=== PATIENT | female | born 1980 | race Caucasian/White ===

== ENCOUNTER 2018-07-17 06:10 | Observation (INO) | payer BC ==
[2018-07-17 06:55] LABS: #Basophils 0.1 thou/uL (0.0-0.2); #Eosinphils 0.3 thou/uL (0.0-0.7); #Lymphocytes 1.9 thou/uL (1.20-3.40); #Monocytes 1.1 thou/uL (0.11-0.59); #Neutrophils 9.7 thou/uL (1.40-6.50); %Basophils 0.5 % (0.0-1.0); %Eosinophils 2.6 % (0.0-10.0); %Lymphocytes 14.5 % (21.0-51.0); %Monocytes 8.3 % (0.0-10.0); %Neutrophils 74.1 % (42.0-75.0); Hemoglobin 15.8 g/dL (12.0-16.0); Mean Corpuscular HGB CONC 33.2 g/dL (32.0-36.0); Mean Corpuscular Hemoglobin 28.7 pg (27.0-31.0); Mean Corpuscular Volume 86.4 fL (78.0-98.0); Mean Platelet Volume 8.4 fL (7.4-10.4); Platelet Count 339 thou/uL (130-400); RBC Distribution Width 12.3 % (11.5-14.5); Red Blood Cell (RBC) Count 5.51 mill/uL (4.20-5.40); White Blood Cell (WBC) Count 13.1 thou/uL (4.8-10.8)
[2018-07-17 07:19] LABS: ALT (SGPT) 198 U/L (8-55); AST (SGOT) 126 U/L (5-34); Albumin 4.4 g/dL (3.5-5.0); Alkaline Phosphatase 111 U/L (40-150); Anion Gap 14 mmol/L (10-20); BUN (Urea Nitrogen) 12 mg/dL (7.0-18.7); Bilirubin, Total 1.2 mg/dL (0.2-1.2); Calc. Creatinine Clearance 0 mL/min (70-130); Calcium 9.8 mg/dL (7.8-10.44); Carbon Dioxide 22 mmol/L (22-29); Chloride 102 mmol/L (98-107); Estimated GFR-MDRD Greater than 90; Globulin 3.4 g/dL (2.4-3.5); Glucose 96 mg/dL (70-105); Lipase 12 U/L (8-78); Potassium 3.5 mmol/L (3.5-5.1); Protein, Total 7.8 g/dL (6.0-8.3); Sodium 134 mmol/L (136-145)
[2018-07-17] MEDS ORDERED: Promethazine HCl 25 MG/ML VIAL ONE (07:44)
[2018-07-17 08:16] LABS: Bilirubin Moderate (Negative); Blood, Urine Large (Negative); Clarity CLOUDY (Clear); Glucose, Urine (Dipstick) Negative (Negative); Leukocyte Trace (Negative); Nitrite Negative (Negative); Protein, Urine (Dipstick) 30 mg/dL (Neg-Trace); Specific Gravity, Urine 1.022 (1.002-1.036); pH, Urine 5.5 (5.0-9.0)
[2018-07-17 08:18] LABS: Bacteria/HPF 1+ HPF (None Seen); Pregnancy Test - Urine (BHCG) Negative (Negative); Pregu Control Background? CLEAR/WHITE (CLR/WHITE); Pregu Control Bar Appear? YES (CONTROL BAR); Squamous Epithelial 21-50 HPF (0-3)
[2018-07-17 08:21] LABS: Specific Gravity 1.022 (1.002-1.036)
[2018-07-17 08:22] LABS: Pathc Cast-AUWi Flag 6.68 (0-2.49)
[2018-07-17 08:42] LABS: Yeast-All Forms None Seen HPF (None Seen)
[2018-07-17 08:43] LABS: Hyaline Casts/LPF 0-3 HYALINE CAST LPF (0-3 Hyaline); Manual Microscopic Reviewed? No Path Casts Seen
[2018-07-17] MEDS ORDERED: Piperacillin/Tazobactam 3.375 GM VIAL ONE (10:16)
--- NOTE | 2018-07-17 11:00 | PDOC.FPRHP ---
- History of Present Illness Chief Complaint: Epigastric pain History of Present Illness: 38 year old female with PMH neurofibromatosis that presents with a 2 day history of significant epigastric pain and intractable N/V. Patient states that she was hospitalized at [place] [facility] on 07/11 - 07/14. She presented initially for diarrhea and BRBPR. She had imaging done which suggested enterocolitis. She was treated for presumptive infectious enterocolitis at that time and was started on antibiotics. She reportedly improved during the course of her stay. CT imaging suggested that distal thickening of colon may be related to IBD. GI was consulted and recommended further workup outpatient. Patient was discharged on Sunday to complete course of Ciprofloxacin. Patient states that since discharge she has not been able to tolerate PO. She cannot even tolerate liquids. She immediately vomits after eating, even when just attempting bland foods or water. Patient states that she is also having episodes of emesis despite not eating. It is nonbloody, but green in appearance. She has had no further episodes of rectal bleeding. However, patient continues to have diarrhea 5-6 times per day. She has yet to have a formed stool and is not passing much gas. Her epigastric pain is persistent and severe, rated 9/10. Sitting up and leaning forward helps minimally. Patient has no history of gastrointestinal related problems. She has been otherwise healthy. She denies any sick contacts or inciting events. ED Course: Patient was given phenergan and IV zosyn in ED. GI was consulted from ED. They recommend stool studies and hydration. - Allergies/Adverse Reactions Allergies Allergy/AdvReac Type Severity Reaction Status Date / Time metronidazole [From Flagyl] Allergy Verified 07/17/18 11:00 - History PMHx: Neurofibromatosis PSHx: C/S x1, Appendectomy, Cholecystectomy FHx: Father with DM and HTN Social: Denies alcohol, tobacco, or drug use. - Review of Systems General: reports: weight/appetite/sleep changes. denies: fever/chills, night sweats Eyes: denies: vision changes ENT: denies: nasal congestion, rhinorrhea Respiratory: denies: cough, congestion, shortness of breath Cardiovascular: denies: chest pain, palpitation, edema Gastrointestinal: reports: nausea, vomiting, diarrhea, abdominal pain, GI bleeding. denies: constipation Genitourinary: denies: dysuria Skin: denies: rashes Musculoskeletal: denies: pain, tenderness Neurological: denies: syncope, seizure Psychological: denies: anxiety, depression - Vital signs BP: [120/79] HR: [79] RR: [18] Tmax: [98.1 F] Pox: [99]% on [RA] Wt: [69 kg] - Physical Exam Constitutional: awake, alert and oriented, well developed -Constitutional: Moderate amount of distress 2/2 abdominal pain HEENT: normocephalic and atraumatic, EOMI, grossly normal vision, grossly normal hearing, MMM Neck: supple Heart: RRR, no murmurs/rubs/gallops Lungs: CTAB Abdomen: soft -Abdomen: Decreased bowel sounds. Exquisitely tender to palpation in RUQ and epigastric region. Rebound tenderness in epigastric region. Negative Givens's sign. Musculoskeletal: ROM grossly normal Neurological: no focal deficit Skin: capillary refill <2 seconds Heme/Lymphatic: no unusual bruising or bleeding Psychiatric: good judgment and insight FMR H&P: Results - Labs Result Diagrams: 07/17/18 06:44 07/17/18 06:44 Lab results: WBC 13.1 thou/uL (4.8-10.8) H 07/17/18 06:44 Hgb 15.8 g/dL (12.0-16.0) 07/17/18 06:44 Hct 47.6 % (36.0-47.0) H 07/17/18 06:44 MCV 86.4 fL (78.0-98.0) 07/17/18 06:44 Plt Count 339 thou/uL (130-400) 07/17/18 06:44 Neutrophils % 74.1 % (42.0-75.0) 07/17/18 06:44 Sodium 134 mmol/L (136-145) L 07/17/18 06:44 Potassium 3.5 mmol/L (3.5-5.1) 07/17/18 06:44 Chloride 102 mmol/L (98-107) 07/17/18 06:44 Carbon Dioxide 22 mmol/L (22-29) 07/17/18 06:44 BUN 12 mg/dL (7.0-18.7) 07/17/18 06:44 Creatinine 0.68 mg/dL (0.6-1.1) 07/17/18 06:44 Glucose 96 mg/dL (70-105) 07/17/18 06:44 Calcium 9.8 mg/dL (7.8-10.44) 07/17/18 06:44 Total Bilirubin 1.2 mg/dL (0.2-1.2) 07/17/18 06:44 AST 126 U/L (5-34) H 07/17/18 06:44 ALT 198 U/L (8-55) H 07/17/18 06:44 Alkaline Phosphatase 111 U/L (40-150) 07/17/18 06:44 Serum Total Protein 7.8 g/dL (6.0-8.3) 07/17/18 06:44 Albumin 4.4 g/dL (3.5-5.0) 07/17/18 06:44 Lipase 12 U/L (8-78) 07/17/18 06:44 Urine Ketones 80 mg/dL (Negative) H 07/17/18 07:50 Urine Blood Large (Negative) H 07/17/18 07:50 Urine Nitrite Negative (Negative) 07/17/18 07:50 Ur Leukocyte Esterase Trace (Negative) H 07/17/18 07:50 Urine RBC 4-6 HPF (0-3) 07/17/18 07:50 Urine WBC 4-6 HPF (0-3) H 07/17/18 07:50 Ur Squamous Epith Cells 21-50 HPF (0-3) H 07/17/18 07:50 Urine Bacteria 1+ HPF (None Seen) H 07/17/18 07:50 FMR H&P: A/P - Problem List (1) Intractable nausea and vomiting Current Visit: Yes Status: Acute Code(s): R11.2 - NAUSEA WITH VOMITING, UNSPECIFIED (2) Enterocolitis Current Visit: Yes Status: Suspected Code(s): K52.9 - NONINFECTIVE GASTROENTERITIS AND COLITIS, UNSPECIFIED (3) Mild dehydration Current Visit: Yes Status: Acute Code(s): E86.0 - DEHYDRATION (4) Neurofibromatosis Current Visit: Yes Status: Chronic - Plan 38 year old female presents with 3 day history of severe epigastric pain and intractable N/V 1. Intractable N/V - Unable to tolerate PO since Sunday (including liquids) - Emesis nonbloody, but bilious (noted in ED) - IVF at 125 mL/hr - Zofran IV PRN - NPO until N/V better controlled - Will order urine drug screen and serum drug screen to rule out other causes of N/V, abdominal pain 2. Suspected infectious enterocolitis - Based on recent hospitalization in [place] (d/c'd sunday) - d/c'd home with Cipro; has been unable to take d/t N/V - Stool studies not performed at outside facility; will order stool cultures and fecal lactoferrin - GI consulted from ED; appreciate recs - Will hold off on antibiotics until receive further recommendations from GI 3. Transaminitis, source unknown - Rule out hepatitis - May be 2/2 enterocolitis - Continue to trend - Consider RUQ ultrasound to evaluate liver 4. Mild dehydration - IVF - Strict I&O's 5. Neurofibromatosis - Patient not on any medications or requiring any treatment for this diagnosis GI PPX: Protonix DVT PPX: SCD's Code status: Full Dispo: Obs, Medical. Stable. Obtain stool studies as above. Await GI recommendations. Bonnie Philippe, PGY-2 Attending Addendum - Attending Addendum Date/Time: 07/17/18 6699 I personally evaluated the patient and discussed the management with Dr. Philippe. I agree with the History, Examination, Assessment and Plan documented above with any addition or exceptions noted below. Patient here with continued abdominal pain and inability to tolerate PO after recent discharge from [facility] with diagnosis of "enterocolitis". She reports abdominal pain, epigastric, pressure and crampy in nature that is worse with food. Also has continued diarrhea that is nonbloody. Emesis is also nonbloody. She is admitted here to obs status for mild hypovolemia and abdominal pain, r/o PUD, gastritis, gastroenteritis. Stool studies will be obtained. PCT pending. Holding antibiotics until GI evaluates as they were consulted by the ER. GI cocktail x1 to see if it will alleviate her pain somewhat. Nausea control as needed.
[2018-07-17] MEDS ORDERED: Pantoprazole 40 MG VIAL IVP SCH (11:45)
[2018-07-17] MEDS ORDERED: Lidocaine 2% Viscous Solution 10 ML, Aluminum & Magnesium Hydroxide 30 ML SSW SCH (12:15)
[2018-07-17] MEDS: Lactated Ringer's 1,000 ML IV SCH ×2 (12:29→20:44)
[2018-07-17 12:37] LABS: Amphetamine Not Detected (NotDetected); Barbiturates Screen Not Detected (NotDetected); Benzodiazepine Screen Not Detected (NotDetected); Cocaine Metabolite Screen Not Detected (NotDetected); Medtox Control Line Valid? VALID (VALID); Medtox Reader # READER 1; Methadone Not Detected (NotDetected); Methamphetamine Not Detected (NotDetected); Opiate Screen Not Detected (NotDetected); Oxycodone Screen Not Detected (NotDetected); Phencyclidine (PCP) Not Detected (NotDetected); THC/Cannabinoid Screen Detected (NotDetected); Tricyclic Screen Not Detected (NotDetected)
[2018-07-17 13:57] LABS: Acetaminophen Less than 6.0 mcg/mL (10.0-30.0); Alcohol Less than 10 mg/dL (Less than 10); Salicylate Less than 8.0 mg/dL (15.0-30.0)
[2018-07-17 14:28] LABS: Hep B Core Total Ab Non-Reactive (NonReactive); Hep B Core Total Index 0.05 S/CO (0-0.79); Hep B Surf AB Non-Reactive (NonReactive); Hep B Surf Ag Non-Reactive S/CO (NonReactive); Hep C IgG Ab Non-Reactive (NonReactive); Hep C Index 0.21 S/CO (0-0.79)
[2018-07-17] MEDS: Acetaminophen 325 MG TAB PO PRN (15:27)
[2018-07-17] MEDS: Ondansetron PF 4 MG/2 ML Vial IVP PRN ×2 (15:27→22:46)
[2018-07-17] MEDS ORDERED: Ondansetron ODT 4 MG TAB PO PRN (20:30)
[2018-07-17] MEDS ORDERED: traMADol HCl 50 MG TAB PO SCH (20:30)
[2018-07-17] MEDS: Promethazine 25 MG TAB PO PRN (20:45)
--- NOTE | 2018-07-17 21:40 | CON ---
DATE OF CONSULTATION: 07/17/2018 REASON FOR CONSULTATION: Diarrhea, abnormal GI imaging, abdominal pain. CONSULTING PHYSICIAN: Dr. Raf Garibay. HISTORY OF PRESENT ILLNESS: The patient is a 38-year-old female with past medical history of neurofi bromatosis, presenting with complaints of midepigastric abdominal pain, nausea, and vomiting. She st ates that she was in her usual state of health until approximately 1-1/2 weeks ago when she experienc ed acute onset of midepigastric abdominal pain characterized as a sharp/stabbing/cramping-type sensat ion, that was constant, nonradiating, and reaches severity of 10/10. The pain was worse with eating, bending over, and twisting movements, better with drinking milk, fasting, and taking hot showers or baths. With increase in this abdominal pain and subsequently prompted her to seek healthcare assista nce at the [facility] on where imaging performed at that time, suggested a p ossible infectious enterocolitis. She was subsequently started on antibiotic therapy including cipro floxacin only (she is allergic to METRONIDAZOLE) with improvement of her symptoms during the course o f her stay; however, within 24-48 hours after discharge, she experienced relapse in her abdominal erasmo n, which then prompted her to come back for further evaluation. She was subsequently transferred to [facility] for such evaluation, associated with the increase in her abdominal pain, was incr eased nausea and vomiting, intolerance to p.o. that she experiences even to now and has been unable t o tolerate either solid or liquid foods over the last 3-4 days. She also describes frequent diarrhea , having approximately 5-6 soeqerdhk-fl-guzxwn bowel movements per day with no difficulty with defeca tion, associated with the onset of this diarrhea, was also one episode of hematochezia, characterized as a single blood clot within her stool that was present in the toilet, not in the toilet paper. Cinthia rowell currently denies any fever, chills, dysphagia, odynophagia, GI bleeding, or constipation. Of note, she does endorse using marijuana for general aches and pains with last use approximately 24 hours pr ior to this admission. Upon review of the patient's chart, she was evaluated by the Gastroenterology Service while in [facility] with recommendations for outpatient evaluation related to CT imaging suggesting thickening of th e colon in the terminal ileum as well as the sigmoid colon. REVIEW OF SYSTEMS: A 10-category review of systems was obtained with all responses negative except f or the pertinent positives as listed in the HPI. PAST MEDICAL HISTORY: As per HPI. PAST SURGICAL HISTORY: x1, appendectomy, and cholecystectomy. FAMILY HISTORY: Denies any GI malignancies or inflammatory bowel disease. SOCIAL HISTORY: Denies any tobacco, alcohol, but does endorse frequent use of marijuana approximatel y once every other day for the last 20+ years. OUTPATIENT MEDICATIONS: Reviewed. ALLERGIES: METRONIDAZOLE (hives). PHYSICAL EXAMINATION: VITAL SIGNS: Temperature 98.1, pulse 63, blood pressure 136/76, respiratory rate 21, satting 97% on room air. GENERAL: The patient was lying in bed in mild distress, but otherwise alert and oriented x4. NECK: Supple. No JVD noted. No cervical or supraclavicular lymphadenopathy noted either. CARDIOVASCULAR: Regular rate and rhythm with no discernible murmurs, gallops, or rubs. PULMONARY: Clear to auscultation bilaterally with no discernible wheezes or rales. ABDOMEN: Normoactive bowel sounds, soft, nondistended. Tenderness to palpation in all abdominal katheryn drants with both light and deep palpation. Negative shifting dullness. EXTREMITIES: No cyanosis, clubbing, or edema. LABORATORY DATA: CBC with a white blood cell count of 13.1, hemoglobin 15.8, hematocrit 47.6, platel ets 339,000. Chemistry with a sodium of 134, potassium 3.5, chloride 102, CO2 of 22, BUN 12, creatin ine 0.68, glucose 96, AST 126, ALT 198, alkaline phosphatase 111, total bilirubin 1.2, albumin 4.4, l ipase 12. The urinalysis shows many abnormalities, but it is consistent with a contaminated sample. Drug of abuse screen was positive for cannabinoids and chronic hepatitis panel was negative. IMAGING DATA: CT scan obtained in [place] (per chart review) suggesting thickening of the termina l ileum and sigmoid colon, concerning for infectious versus inflammatory process. ASSESSMENT AND PLAN: The patient is a 38-year-old female with past medical history of neurofibromato sis, presenting with midepigastric abdominal pain, nausea, vomiting, and diarrhea with imaging concer yvonne for enterocolitis from either infectious or inflammatory process. Enterocolitis: The patient is presenting with acute onset of midepigastric abdominal pain, nausea, v omiting, and liquid diarrhea that has been present for the last 1.5 weeks. She was evaluated at [facility], diagnosed with an infectious process and placed on ciprofloxacin as part of manageme nt. She did experience improvement of her symptoms while in the hospital, but almost immediately upo n discharge experienced a relapse in all of her symptoms prompting her admission to the hospital here . Based on the increased nausea, vomiting, and abdominal pain that is better with hot showers or bat hs, it seems more consistent with cannabinoid hyperemesis syndrome, contributing to her current sympt oms. However, this entity would not necessarily cause abnormal GI imaging, hematochezia, nor the esdras vated white blood cell count or transaminitis seen on labs. At this time, the differential could inc lude infectious colitis (especially given the elevated white blood cell count) inflammatory bowel dis ease including Crohn's disease or ulcerative colitis, ischemic colitis (less likely) choledocholithia sis (with elevated transaminitis and abdominal pain, status post cholecystectomy) or medication-induc ed colitis or transaminitis (drug-induced liver injury). RECOMMENDATIONS: 1. We will follow up on the stool studies including Clostridium difficile and treat if any come back positive. 2. We would continue IV fluids and pain control. 3. We would pursue aggressive antiemetic control with Zofran. 4. Agree with obtaining a right upper quadrant abdominal ultrasound for evaluation of the liver pare nchyma. 5. If all the above studies come back negative, we would then consider colonoscopy (most likely on ). We will continue to follow. Please call with any questions.
[2018-07-18] MEDS ORDERED: Morphine 2 MG/ML SYRINGE SLOW IVP SCH (01:16)
[2018-07-18] MEDS ORDERED: Sodium Chloride 0.9% 10 ML ONE ×2 (01:24→07:13)
[2018-07-18] MEDS: Acetaminophen 325 MG TAB PO PRN (03:22)
[2018-07-18 04:13] LABS: ALT (SGPT) 210 U/L (8-55); AST (SGOT) 110 U/L (5-34); Albumin 3.4 g/dL (3.5-5.0); Alkaline Phosphatase 85 U/L (40-150); Anion Gap 15 mmol/L (10-20); BUN (Urea Nitrogen) 9 mg/dL (7.0-18.7); Bilirubin, Total 1.1 mg/dL (0.2-1.2); Calc. Creatinine Clearance 153 mL/min (70-130); Calcium 8.4 mg/dL (7.8-10.44); Carbon Dioxide 19 mmol/L (22-29); Chloride 106 mmol/L (98-107); Estimated GFR-MDRD Greater than 90; Globulin 2.5 g/dL (2.4-3.5); Glucose 81 mg/dL (70-105); Potassium 3.3 mmol/L (3.5-5.1); Protein, Total 5.9 g/dL (6.0-8.3); Sodium 137 mmol/L (136-145)
[2018-07-18 04:36] LABS: #Basophils 0.1 thou/uL (0.0-0.2); #Eosinphils 0.3 thou/uL (0.0-0.7); #Lymphocytes 1.9 thou/uL (1.20-3.40); #Neutrophils 6.9 thou/uL (1.40-6.50); %Basophils 0.6 % (0.0-1.0); %Eosinophils 3.4 % (0.0-10.0); %Lymphocytes 18.9 % (21.0-51.0); %Monocytes 9.5 % (0.0-10.0); %Neutrophils 67.6 % (42.0-75.0); Hemoglobin 13.1 g/dL (12.0-16.0); Mean Corpuscular HGB CONC 33.5 g/dL (32.0-36.0); Mean Corpuscular Hemoglobin 29.3 pg (27.0-31.0); Mean Corpuscular Volume 87.6 fL (78.0-98.0); Mean Platelet Volume 8.5 fL (7.4-10.4); Platelet Count 261 thou/uL (130-400); Red Blood Cell (RBC) Count 4.45 mill/uL (4.20-5.40); White Blood Cell (WBC) Count 10.2 thou/uL (4.8-10.8)
[2018-07-18] MEDS: Ondansetron PF 4 MG/2 ML Vial IVP PRN ×3 (04:57→19:55)
[2018-07-18] MEDS: Lactated Ringer's 1,000 ML IV SCH ×3 (05:00→22:28)
[2018-07-18] MEDS ORDERED: Lidocaine 2% Viscous Solution 10 ML, Aluminum & Magnesium Hydroxide 30 ML SSW SCH (07:15)
[2018-07-18] MEDS: Morphine 2 MG/ML SYRINGE SLOW IVP PRN ×3 (07:16→20:00)
--- NOTE | 2018-07-18 08:07 | PDOC.FM ---
- Subjective Subjective: Patient seen this am resting comfortably in bed in no distress. She complains of continued epigastric pain and non bloody diarrhea. 4-5 liquid BMs last night. - Objective Vital Signs & Weight: Vital Signs (12 hours) Temp Pulse Resp BP Pulse Ox 07/18/18 07:25 98.1 F 07/18/18 07:15 62 16 124/68 97 07/18/18 03:11 98.1 F 72 16 117/67 96 07/18/18 01:27 71 16 127/69 07/17/18 23:20 98.0 F 67 16 119/68 97 Weight Weight 77.383 kg I&O: 07/17/18 07/18/18 07/19/18 06:59 06:59 06:59 Intake Total 2430 1 Output Total 300 Balance 2130 1 Result Diagrams: 07/18/18 03:12 07/18/18 03:12 <Kamlesh Rodriguez - Last Filed: 07/18/18 08:04> - Objective Vital Signs & Weight: Vital Signs (12 hours) Temp Pulse Resp BP Pulse Ox 07/18/18 07:25 98.1 F 07/18/18 07:15 62 16 124/68 97 07/18/18 03:11 98.1 F 72 16 117/67 96 07/18/18 01:27 71 16 127/69 Weight Weight 77.383 kg I&O: 07/17/18 07/18/18 07/19/18 06:59 06:59 06:59 Intake Total 2430 11 Output Total 300 Balance 2130 11 Result Diagrams: 07/18/18 03:12 07/18/18 03:12 <De Reynoso - Last Filed: 07/18/18 11:27> Phys Exam - Physical Examination Constitutional: NAD HEENT: moist MMs Neck: no nodes Respiratory: clear to auscultation bilateral Cardiovascular: RRR, no significant murmur Gastrointestinal: soft, no distention, positive bowel sounds Diffuse TTP Musculoskeletal: no edema Neurological: moves all 4 limbs Psychiatric: normal affect, A&O x 3 Skin: no rash <Kamlesh Rodriguez - Last Filed: 07/18/18 08:04> Dx/Plan (1) Intractable nausea and vomiting Code(s): R11.2 - NAUSEA WITH VOMITING, UNSPECIFIED Status: Acute (2) Marijuana abuse Code(s): F12.10 - CANNABIS ABUSE, UNCOMPLICATED Status: Chronic (3) Mild dehydration Code(s): E86.0 - DEHYDRATION Status: Resolved (4) Neurofibromatosis Status: Chronic (5) Enterocolitis Code(s): K52.9 - NONINFECTIVE GASTROENTERITIS AND COLITIS, UNSPECIFIED Status : Suspected - Plan Plan: Intractable N/V - Vomiting improved with zofran, continue PRN. Advance diet as tolerated. - Continue IVF at 125 mL/hr - Zofran IV PRN - It is possible that this is related to Marijuana use Suspected infectious enterocolitis - Stool studies negative - GI has seen patient and is considering infectious vs inflammatory etiology. - No more episodes of blood in stool. - Continue to support with IV fluids Transaminitis, source unknown - Generally stable today - Hep screening negative - May be related to colitis - US pending Mild dehydration, resolved Neurofibromatosis - no treatment/monitoring needed Dispo: Patient is stable, continue to monitor fluid status until symptoms improve <Kamlesh Rodriguez - Last Filed: 07/18/18 08:04> (1) Intractable nausea and vomiting Code(s): R11.2 - NAUSEA WITH VOMITING, UNSPECIFIED Status: Acute (2) Enterocolitis Code(s): K52.9 - NONINFECTIVE GASTROENTERITIS AND COLITIS, UNSPECIFIED Status : Suspected (3) Mild dehydration Code(s): E86.0 - DEHYDRATION Status: Resolved (4) Neurofibromatosis Status: Chronic <De Reynoso R - Last Filed: 07/18/18 11:27> Attending Addendum - Attending Addendum Date/Time: 07/18/18 1126 I personally evaluated the patient and discussed the management with Dr. Rodriguez. I agree with the History, Examination, Assessment and Plan documented above with any addition or exceptions noted below. Somewhat improved. Stool studies negative. Awaiting RUQ U/S results and further GI recs. Could be some degree of cannibis induced nausea/vomiting. <De Reynoso - Last Filed: 07/18/18 11:27>
[2018-07-18] MEDS: Pantoprazole 40 MG VIAL IVP SCH (09:13)
[2018-07-18] MEDS: Promethazine 25 MG TAB PO PRN ×2 (09:16→22:29)
--- NOTE | 2018-07-18 10:17 | ULT ---
RIGHT UPPER QUADRANT ULTRASOUND: History: Elevated LFTs. Comparison: None. FINDINGS: Real-time grayscale and color analysis of the right upper quadrant of the abdomen was performed. The aorta and IVC are not well seen. Pancreas is not well seen. The liver measures 13.7 cm in length. Trace subhepatic fluid. Common bile duct is normal. Prior cholecystectomy. Right kidney measures 9 x 4.2 x 4 cm without mass, hydronephrosis or abnormal calcifications. IMPRESSION: Some trace subhepatic fluid, otherwise unremarkable exam. POS: [facility]
--- NOTE | 2018-07-18 13:17 | PRG ---
DATE OF SERVICE: 07/18/2018 REASON FOR CONSULTATION: Diarrhea, abnormal imaging and abdominal pain. SUBJECTIVE: The patient states that she did not have any further episodes of nausea or vomiting sinc e yesterday. States that her abdominal pain has improved some, but does continue to have lower quadr ant abdominal pain today. She does endorse having approximately 1-2 semi-solid to liquid bowel movem ents over the last 24 hours as well. Otherwise, she currently denies any nausea, vomiting, fevers, c hills, or GI bleeding. OBJECTIVE: VITAL SIGNS: Temperature 98.1, pulse 64, blood pressure 113/71, respiratory rate 16, satting 97% on room air. GENERAL: The patient was lying in bed, in no acute distress. Alert and oriented x4. CARDIOVASCULAR: Regular rate and rhythm. PULMONARY: Clear to auscultation bilaterally. ABDOMEN: Normoactive bowel sounds, soft, nondistended. Tenderness to palpation in all abdominal katheryn drants, but improved from previous. EXTREMITIES: No cyanosis, clubbing or edema. LABORATORY DATA: CBC with a white blood cell count of 10.2, hemoglobin 13.1, hematocrit 39, platelet s 261. Chemistry with a sodium of 137, potassium 3.3, chloride 106, CO2 of 19, BUN 9, creatinine 0.6 1, AST 110, ALT 210, alkaline phosphatase 85, total bilirubin 1.1. IMAGING DATA: Right upper quadrant abdominal ultrasound obtained on 07/18/2018 showed trace subhepat ic fluid, but otherwise was unremarkable for any other abnormalities. ASSESSMENT AND PLAN: The patient is a 38-year-old female with past medical history of neurofibromato sis presenting with midepigastric abdominal pain, nausea, vomiting, and diarrhea with imaging concern ing for enterocolitis from either infectious or inflammatory process. Enterocolitis: The patient initially presented with acute onset of midepigastric abdominal pain, osmar sea, vomiting, and liquid diarrhea that had been present for approximately 1.5 weeks prior to admissi on. She was initially evaluated in the [facility] and diagnosed with an infectious process and p laced on ciprofloxacin as part of management. She did experience improvement in her symptoms while i n the hospital, but had a relapse in her symptoms almost immediately upon discharge. Upon evaluation here, she did continue to have all the above symptoms that have improved over the last 24 hours with right upper quadrant ultrasound not consistent with any hepatic pathology from a structural standpoi nt, but she does have a CT abdomen and pelvis from the prior institution showing thickening of the co dwaine concerning for a possible inflammatory process. Infectious stool studies obtained here have all been negative thus far making an infectious etiology less likely. At this time, the differential cou ld include cannabinoid hyperemesis syndrome, which can then generate mildly elevated LFTs with repeat ed nausea and vomiting as can sometimes be seen with hyperemesis gravidarum. However, given the abno rmal GI imaging and hematochezia that she described prior to admission, a colonic origin of her abdom inal pain, diarrhea, and these other abnormalities cannot be ruled out at this time. As such, I woul d recommend colonoscopy for further evaluation. RECOMMENDATIONS: 1. We would continue IV fluids and pain control per primary team. 2. We would continue aggressive antiemetic control with Zofran and Phenergan as needed. 3. We will place the patient on a clear liquid diet today with plans to prep her for colonoscopy sienna orrow. I will also put an order for n.p.o. at midnight status as well. We will continue to follow. Please call with any questions.
[2018-07-18] MEDS ORDERED: GoLYTELY 4,000 ml Bottle PO SCH (18:00)
[2018-07-19] MEDS: Morphine 2 MG/ML SYRINGE SLOW IVP PRN ×4 (00:12→21:52)
[2018-07-19] MEDS: Ondansetron PF 4 MG/2 ML Vial IVP PRN (06:02)
[2018-07-19] MEDS: Lactated Ringer's 1,000 ML IV SCH ×3 (06:02→17:19)
[2018-07-19] MEDS: Pantoprazole 40 MG VIAL IVP SCH (10:45)
--- NOTE | 2018-07-19 11:13 | PDOC.EVN ---
Attending Addendum - Attending Addendum Date/Time: 07/19/18 1111 I personally evaluated the patient and discussed the management with Dr. Rodriguez. I agree with the History, Examination, Assessment and Plan documented in his progress note with any addition or exceptions noted below. Awaiting colonoscopy results and further GI recs. Hopeful discharge later today pending GI findings.
[2018-07-19] MEDS ORDERED: PROPOFOL 200 MG/20 ML VIAL ONE (12:02)
--- NOTE | 2018-07-19 12:21 | OP ---
DATE OF PROCEDURE: 07/19/2018 PROCEDURES PERFORMED: Colonoscopy with polypectomy. INDICATION FOR PROCEDURE: Abdominal pain, diarrhea, abnormal GI imaging. DESCRIPTION OF THE PROCEDURE: After the risks and benefits of the procedure were explained to the pa tient including risks of bleeding, infection, perforation, reactions to anesthesia, aspiration and/or pain, informed consent was obtained. The patient was then taken to the endoscopy suite where deep s edation was administered via propofol and anesthesia support. Once adequate sedation was achieved, t he digital rectal examination was performed followed by introduction of the standard colonoscope into the rectum and advanced to the terminal ileum without difficulty. The quality of the prep was excel lent with good visualization of the colonic and ileal mucosa. The patient tolerated the procedure we ll with no immediate perioperative complications. At the conclusion of the procedure, all equipment was removed, and the patient was transferred to PACU in satisfactory condition. FINDINGS: DIGITAL RECTAL EXAM: Small external hemorrhoids were seen on external exam. COLON FINDINGS: Normal appearing mucosa was seen in the terminal ileum up to 20 cm past the ileoceca l valve, there was no evidence of mucosal erythema, wall thickness, erosions or ulcerations in this r egion. Normal appearing mucosa was also seen at the ileocecal valve and appendiceal orifice. Normal appearing mucosa was also seen in the cecum, ascending colon, transverse colon, and descending colon . A 4 mm slightly erythematous polyp was seen in the sigmoid colon at 30 cm past the anal verge with a 1-2 mm nipple at the apex of the polyp itself. The polyp was completely removed with hot snare po lypectomy and placed in a specimen jar for evaluation. Otherwise, the remainder of the sigmoid colon appeared normal. Normal appearing mucosa was also seen in the rectum. Scattered diverticula were s een in the ascending, transverse, descending and sigmoid colons. Small internal hemorrhoids were see n on rectal retroflexion. IMPRESSION: 1. A 4 mm sigmoid colon polyp, status post snare cautery polypectomy. 2. Small internal hemorrhoids. 3. Otherwise, normal colonoscopy with no findings consistent with the CT scan obtained prior to admi ssion. There was no evidence of inflammatory bowel disease or infectious etiology at this time. RECOMMENDATIONS: 1. We would advance the patient's diet as tolerated starting with clear liquid diet. 2. We will follow up on the biopsy results with outpatient management further guided by those result s. 3. Continue with aggressive antiemetic control with Zofran and Phenergan. 4. Continue to recommend cessation of marijuana use as it could contribute to her current nausea, vo miting, and belly pain. 5. Continue to monitor for any signs of GI bleeding. 6. Would consider upper endoscopy if patient's symptoms continue to worsen. We will continue to follow. Please call with any questions.
--- NOTE | 2018-07-19 12:44 | PDOC.FM ---
- Subjective Subjective: Patient seen s/p colonoscopy this morning. Complains of mild nausea without vomiting. Epigastric pain persists. Otherwise denies abdominal pain or blood per rectum. - Objective MAR Reviewed: Yes Vital Signs & Weight: Vital Signs (12 hours) Temp Pulse Resp BP BP Pulse Ox 07/19/18 10:40 98.3 F 56 L 16 106/58 L 96 07/19/18 03:15 98.3 F 70 16 106/64 95 Weight Weight 77.564 kg I&O: 07/18/18 07/19/18 07/20/18 06:59 06:59 06:59 Intake Total 2430 7647 Output Total 300 1750 Balance 2130 5897 Result Diagrams: 07/18/18 03:12 07/18/18 03:12 Phys Exam - Physical Examination Constitutional: NAD HEENT: moist MMs Neck: full ROM Respiratory: clear to auscultation bilateral Cardiovascular: RRR, no significant murmur Gastrointestinal: soft, no distention, positive bowel sounds Mild epigastric TTP Musculoskeletal: no edema Neurological: moves all 4 limbs Psychiatric: normal affect, A&O x 3 Skin: no rash Dx/Plan (1) Intractable nausea and vomiting Code(s): R11.2 - NAUSEA WITH VOMITING, UNSPECIFIED Status: Acute (2) Marijuana abuse Code(s): F12.10 - CANNABIS ABUSE, UNCOMPLICATED Status: Chronic (3) Mild dehydration Code(s): E86.0 - DEHYDRATION Status: Resolved (4) Neurofibromatosis Status: Chronic (5) Enterocolitis Code(s): K52.9 - NONINFECTIVE GASTROENTERITIS AND COLITIS, UNSPECIFIED Status : Suspected - Plan Plan: Intractable N/V - Vomiting improved with zofran, continue PRN. Advance diet as tolerated. - Continue IVF at 125 mL/hr, dc when she can tolerate PO liauid - It is possible that this is related to Marijuana use - Will start prn carafate for abd pain Suspected infectious enterocolitis - Stool studies negative - S/p colonoscopy this morning. Will await results and recommendation Transaminitis, source unknown - Stable - US finds trace fluid around liver - continue to monitor, may be associated with gastroenteritis Mild dehydration, resolved Neurofibromatosis - no treatment/monitoring needed Dispo: pt is stable and will be ready for dc when she can tolerate po liquids, likely today
[2018-07-19 14:11] VITALS: BMI 34.5
[2018-07-19] MEDS: Acetaminophen 325 MG TAB PO PRN (18:25)
[2018-07-20] MEDS: Lactated Ringer's 1,000 ML IV SCH ×2 (02:12→05:12)
[2018-07-20] MEDS: Ondansetron PF 4 MG/2 ML Vial IVP PRN (04:23)
[2018-07-20] MEDS: Morphine 2 MG/ML SYRINGE SLOW IVP PRN (04:23)
--- NOTE | 2018-07-20 10:33 | PDOC.FM ---
- Subjective Subjective: Patient doing well this AM. No significant overnight events. Patient states she is not nauseous this morning and has not required any anti-nausea medication. She states she is feeling well enough to go home. - Objective MAR Reviewed: Yes Vital Signs & Weight: Vital Signs (12 hours) Temp Pulse Resp BP BP BP Pulse Ox 07/20/18 08:00 98 F 60 16 126/75 96 07/20/18 04:23 98.8 F 71 16 116/75 96 07/20/18 00:53 96 07/19/18 23:07 98.7 F 59 L 16 108/66 95 Weight Admit Weight 76.685 kg Weight 77.882 kg I&O: 07/19/18 07/20/18 07/21/18 06:59 06:59 06:59 Intake Total 7647 3029 Output Total 1750 975 Balance 5897 2053 Result Diagrams: 07/18/18 03:12 07/18/18 03:12 EKG Reviewed by me: No Radiology Reviewed by me: No <Bonnie Philippe - Last Filed: 07/20/18 10:28> - Objective Vital Signs & Weight: Vital Signs (12 hours) Temp Pulse Resp BP BP BP Pulse Ox 07/20/18 08:00 98 F 60 16 126/75 96 07/20/18 04:23 98.8 F 71 16 116/75 96 07/20/18 00:53 96 07/19/18 23:07 98.7 F 59 L 16 108/66 95 Weight Admit Weight 76.685 kg Weight 77.882 kg I&O: 07/19/18 07/20/18 07/21/18 06:59 06:59 06:59 Intake Total 7647 3029 Output Total 1750 975 Balance 5897 2053 Result Diagrams: 07/18/18 03:12 07/18/18 03:12 <De Reynoso - Last Filed: 07/20/18 10:36> Phys Exam - Physical Examination Constitutional: NAD HEENT: moist MMs Neck: supple Respiratory: no wheezing, clear to auscultation bilateral Cardiovascular: RRR Gastrointestinal: soft, non-tender, no distention, positive bowel sounds Musculoskeletal: no edema, pulses present Neurological: non-focal Psychiatric: normal affect, A&O x 3 Skin: no rash, cap refill <2 seconds <Bonnie Philippe - Last Filed: 07/20/18 10:28> Dx/Plan (1) Intractable nausea and vomiting Code(s): R11.2 - NAUSEA WITH VOMITING, UNSPECIFIED Status: Acute (2) Enterocolitis Code(s): K52.9 - NONINFECTIVE GASTROENTERITIS AND COLITIS, UNSPECIFIED Status : Suspected (3) Mild dehydration Code(s): E86.0 - DEHYDRATION Status: Resolved (4) Neurofibromatosis Status: Chronic - Plan Plan: 38 year old female presents with a 3 day history of intractable N/V. Intractable N/V likely 2/2 cannabinoid hyperemesis syndrome - Patient improved this AM - No longer requiring anti-nausea medication - Tolerated clear liquid diet, will advance to regular - D/c IVF - Counseled on marijuana cessation Suspected infectious enterocolitis, ruled out - Stool studies negative - Colonoscopy with no indication of enterocolitis, mild hemorrhoids and one polyp s/p snare polypectomy; no indication of IBD. Transaminitis, source unknown - Stable - US finds trace fluid around liver - May be associated with gastroenteritis Mild dehydration, resolved Neurofibromatosis - no treatment/monitoring needed Dispo: Stable. Plan for d/c home early this afternoon if tolerating breakfast/ lunch. <Bonnie Philippe - Last Filed: 07/20/18 10:28> (1) Intractable nausea and vomiting Code(s): R11.2 - NAUSEA WITH VOMITING, UNSPECIFIED Status: Acute (2) Enterocolitis Code(s): K52.9 - NONINFECTIVE GASTROENTERITIS AND COLITIS, UNSPECIFIED Status : Suspected (3) Mild dehydration Code(s): E86.0 - DEHYDRATION Status: Resolved (4) Neurofibromatosis Status: Chronic <eD Reynoso - Last Filed: 07/20/18 10:36> Attending Addendum - Attending Addendum Date/Time: 07/20/18 1036 I personally evaluated the patient and discussed the management with Dr. Philippe. I agree with the History, Examination, Assessment and Plan documented above with any addition or exceptions noted below. Negative GI workup. Stable for discharge today. <De Reynoso - Last Filed: 07/20/18 10:36>
[2018-07-20 12:01] VITALS: BP 120/80; TEMP 98.2
[2018-07-20] MEDS: Pantoprazole 40 MG VIAL IVP SCH (12:18)
--- NOTE | 2018-07-20 14:54 | DIS-2 ---
DATE OF ADMISSION: 07/17/2018 DATE OF DISCHARGE: 07/20/2018. ADMITTING ATTENDING: De Reynoso MD DISCHARGE ATTENDING: De Reynoso MD RESIDENT: Bonnie Philippe DO CONSULTATIONS: Amandeep Boyd MD, Gastroenterology. PROCEDURES: 1. Right upper quadrant ultrasound showed some trace subhepatic fluid with an otherwise unremarkable exam. 2. Colonoscopy showed a 4 mm sigmoid colon polyp, status post snare cautery polypectomy. There were small internal hemorrhoids. Otherwise, normal colonoscopy with no findings consistent with the CT s can obtained prior to admission. There was no evidence of inflammatory bowel disease or infectious e tiology. PRIMARY DIAGNOSES: 1. Intractable nausea, vomiting, likely secondary to cannabinoid hyperemesis syndrome. 2. Infectious colitis, ruled out. 3. Transaminitis, possibly related to recent gastroenteritis. 4. Mild dehydration, resolved. SECONDARY DIAGNOSIS: Neurofibromatosis. DISCHARGE MEDICATIONS: None. HISTORY OF PRESENT ILLNESS/HOSPITAL COURSE: This is a 38-year-old female with past medical history o f neurofibromatosis that presented with a 2-day history of significant epigastric pain and intractabl e nausea and vomiting. The patient states she was hospitalized at [place] [facility] on 07/11/2018 [facility] 07/14/2018. She had presented initially to [place] ED with pertinent diarrhea, and bright red b lood per rectum. She had a CT of the abdomen performed that suggested enterocolitis. She was treate d for presumptive infection with antibiotics. She did improve during the course of her stay at the [facility]. The CT imaging did show distal thickening of the colon which was initially thoug ht to be related to an irritable bowel disease. GI was consulted and they had plans to do a colonosc opy as an outpatient. The patient was discharged on Sunday to complete a course of ciprofloxacin. S he stated that since discharge, she has not been able to tolerate p.o. She states she immediately vo mits after eating and has episodes of emesis intermittently throughout the day. The patient states t hat she had no further episodes of rectal bleeding since leaving the hospital. She does state that s he has diarrhea about 5-6 times per day. She states that her epigastric pain is persistent and sever e, rated 9/10. Sitting up and leaning forward helps minimally. The patient has no history of gastro intestinal related problems. She has been otherwise healthy. She denied any sick contacts or inciti ng events. Patient remains stable throughout the course of hospital stay. It did take Zofran, Phenergan, morphi ne to get patient's abdominal pain and nausea/vomiting under control. Gastroenterology was consulted , and they did do a colonoscopy to evaluate for inflammatory bowel disease. A colonoscopy showed 4 m m sigmoid polyp which was removed using snare polypectomy and no other acute findings were suggestive of inflammatory bowel disease per GI. The patient was transitioned to clear liquid diet and tolerat ed that well. On the day of discharge, she voiced her desire to go home and be with her kids. She d id tolerate p.o. prior to discharge. DISPOSITION: Stable. 1. Location: Home. 2. Activity: No restrictions. 3. Diet: Regular. 4. Followup: The patient is to follow up with her primary care physician, Dr. Driver, within 7 days of discharge from hospital to ensure resolution and improvement in symptoms. This plan was discusse d with the patient who is in agreement.
== END 2018-07-20 16:04 | disposition home or self-care (01) ==
LOC: ERS 06:10 → 2SW 10:47
PROVIDERS: ADMIT Student in an Organized Health Care Education/Training Program; ATTEND Student in an Organized Health Care Education/Training Program
PROC: 0DBN8ZX Excision of Sigmoid Colon, Via Natural or Artificial Opening Endoscopic, Diagnostic (ICD-10-PCS; principal; 2018-07-19)
DX: K63.5 Polyp of colon (principal); K64.4 Residual hemorrhoidal skin tags; K64.8 Other hemorrhoids; K57.30 Diverticulosis of large intestine without perforation or abscess without bleeding; Q85.00 Neurofibromatosis, unspecified; E86.0 Dehydration; R74.0 Nonspecific elevation of levels of transaminase and lactic acid dehydrogenase [LDH]; F12.10 Cannabis abuse, uncomplicated; Z88.1 Allergy status to other antibiotic agents
CPT/HCPCS: 36415; 76705; 80053; 80306; 80307; 81003; 81015; 81025; 83630; 83690; 84145; 85025; 86704; 86706; 86708; 86803; 87045; 87046; 87324; 87340; 87449; 87899; 88305; 96361; 96365; 96366; 96367; 96375; 96376; C9113; G0378; J2270; J2405; J2543; J2550; J2704; Q0162

== ENCOUNTER 2019-04-30 19:11 | Emergency (ER) | payer BC, OTHER ==
[~2019-04-30 19:11] MED LIST: ISOVUE-370 76%-LOCM 1 ML ONE
[2019-04-30 19:37] LABS: Bilirubin Negative (Negative); Blood, Urine 2+ (Negative); Clarity Turbid (Clear); Glucose, Urine (Dipstick) Normal (Negative); Leukocyte 25 Leu/uL (Negative); Nitrite Negative (Negative); Protein, Urine (Dipstick) 10 mg/dL (Neg-Trace); Urobilinogen Normal mg/dL (Less than 2)
[2019-04-30 19:46] LABS: Bacteria/HPF 3+ HPF (None Seen)
[2019-04-30 20:35] LABS: #Basophils 0.1 thou/uL (0.0-0.2); #Eosinphils 0.2 thou/uL (0.0-0.7); #Lymphocytes 2.7 thou/uL (1.20-3.40); #Monocytes 0.9 thou/uL (0.11-0.59); #Neutrophils 10.4 thou/uL (1.40-6.50); %Basophils 0.5 % (0.0-1.0); %Eosinophils 1.2 % (0.0-10.0); %Monocytes 6.4 % (0.0-10.0); Hemoglobin 14.6 g/dL (12.0-16.0); Mean Corpuscular HGB CONC 33.7 g/dL (32.0-36.0); Mean Corpuscular Hemoglobin 29.4 pg (27.0-31.0); Mean Corpuscular Volume 87.4 fL (78.0-98.0); Mean Platelet Volume 7.7 fL (7.4-10.4); Platelet Count 331 thou/uL (130-400); RBC Distribution Width 12.3 % (11.5-14.5); Red Blood Cell (RBC) Count 4.95 mill/uL (4.20-5.40); White Blood Cell (WBC) Count 14.3 thou/uL (4.8-10.8)
[2019-04-30] MEDS ORDERED: Ondansetron PF 4 MG/2 ML Vial ONE (20:47)
[2019-04-30] MEDS ORDERED: Ondansetron ODT 4 MG TAB ONE (20:48)
[2019-04-30 21:08] LABS: ALT (SGPT) 22 U/L (8-55); AST (SGOT) 15 U/L (5-34); Albumin 4.2 g/dL (3.5-5.0); Alkaline Phosphatase 103 U/L (40-150); Anion Gap 11 mmol/L (10-20); BUN (Urea Nitrogen) 12 mg/dL (7.0-18.7); Bilirubin, Total 0.3 mg/dL (0.2-1.2); Calc. Creatinine Clearance 0 mL/min (70-130); Calcium 9.3 mg/dL (7.8-10.44); Carbon Dioxide 21 mmol/L (22-29); Chloride 107 mmol/L (98-107); Estimated GFR-MDRD 80; Globulin 3.1 g/dL (2.4-3.5); Glucose 82 mg/dL (70-105); Potassium 3.8 mmol/L (3.5-5.1); Protein, Total 7.3 g/dL (6.0-8.3); Sodium 135 mmol/L (136-145)
[2019-04-30 21:48] LABS: BHCG - Serum Negative (NEGATIVE); Pregs Control Background? CLEAR/WHITE (CLR/WHITE); Pregs Control Bar Appear? YES (CONTROL BAR)
[2019-04-30] MEDS ORDERED: Morphine 4 MG/ML VIAL ONE ×2 (22:26→23:06)
--- NOTE | 2019-04-30 23:31 | CT ---
CT abdomen and pelvis with IV contrast HISTORY: Abdominal pain. Nausea and vomiting. FINDINGS: The lung bases are clear. Gallbladder is surgically absent. Solid organs are intact. Reacti ve appearing lymph nodes throughout the retroperitoneum and mesentery. Urinary bladder is incompletely distended. No evidence of bowel obstruction. Appendix is not directly visualized. No inflammation or other abnor malities. IMPRESSION: No evidence of bowel obstruction or inflammation. No significant abnormalities are demons trated.
== END 2019-05-01 00:47 | disposition home or self-care (01) ==
LOC: ERS 19:11
DX: R10.9 Unspecified abdominal pain (principal); R11.2 Nausea with vomiting, unspecified; R10.816 Epigastric abdominal tenderness
CPT/HCPCS: 36415; 74177; 80053; 81003; 81015; 83690; 84703; 85025; 87086; 96361; 96374; J2270; J2405; Q0162; Q9966

== ENCOUNTER 2020-05-16 17:26 | Emergency (ER) | payer OTHER ==
[2020-05-16] MEDS ORDERED: Lidocaine 1% w/Epinephrine 1:100K 20 ML VIAL ONE (19:08)
== END 2020-05-16 20:47 | disposition home or self-care (01) ==
LOC: ERS 17:26
DX: L02.412 Cutaneous abscess of left axilla (principal); F41.9 Anxiety disorder, unspecified
CPT/HCPCS: 10060; 90471